=== PATIENT | female | born 1950 | race Caucasian/White ===

== ENCOUNTER → 2017-06-20 08:51 | Outpatient (CLI) | payer MEDICARE, SELFPAY ==
--- NOTE | 2017-06-20 08:59 | XR_ITS ---
XR DEXA axial skeleton HISTORY: ITS.REASON: POST MENOPAUSAL ORDERING PHYSICIAN: Rupert Villatoro MD PATIENT AGE: 66 years COMPARISON: 02/09/2011 FINDINGS: The BMD measured at the left femoral neck is 0.863 g/cm squared with a T score of -1.3 . This is considered Osteopenic according to the World Health Organization criteria. Fracture risk is Moderate. Treatment is advised. The L1 L4 density has a T score of 0.5 The density of the lumbar spine is increased by 9% from 02/09/2011 and the density of the hips is decreased by nearly 2% from 02/09/2011 IMPRESSION: Osteopenia. See above for detail. Recommend follow-up exam June 2019
== END ==
PROVIDERS: PCP Family Medicine; Visit Provider Family Medicine
DX: Z78.0 Asymptomatic menopausal state (principal); Z13.820 Encounter for screening for osteoporosis
CPT/HCPCS: 77080

== ENCOUNTER → 2018-02-26 09:01 | Outpatient (CLI) | payer MEDICARE, SELFPAY ==
[2018-02-26 10:11] LABS: Hemoglobin A1C 6.1 % (0.0-7.0)
[2018-02-26 11:10] LABS: Alanine Aminotransferase 33 U/L (12-78); Albumin Level 3.4 gm/dL (3.4-5.0); Albumin/Globulin Ratio 0.9 (1.1-1.8); Alkaline Phosphatase 133 U/L (46-116); Anion Gap 11.5 mEq/L (5-15); Aspartate Amino Transferase 31 U/L (15-37); Bilirubin,Total 0.5 mg/dL (0.2-1.0); Blood Urea Nitrogen 20 mg/dL (7-18); Carbon Dioxide 28 mmol/L (21.0-32.0); Chloride 104 mmol/L (98-107); Chol/HDL Ratio 4.3 (1-3.5); Cholesterol 204 mg/dL (140-200); Creatinine,Serum 1.05 mg/dL (0.55-1.02); Estimated Glomerular Filt Rate 52 ml/min (>60); GFR (African American) 63 ML/MIN (>60); Globulin 3.9 gm/dl (1.3-3.2); Glucose 105 mg/dL (74-106); HDL Cholesterol 48 mg/dL (29-89); LDL Cholesterol 120 mg/dL (0-130); Potassium 4.5 mmoL/L (3.5-5.1); Sodium 139 mmol/L (136-145); Thyroid Stimulating Hormone 1.97 uIU/ml (0.358-3.740); Total Protein,Serum 7.3 gm/dL (6.4-8.2); Triglycerides 180 mg/dL (30-200); VLDL Cholesterol 36 mg/dL (0-40)
== END ==
PROVIDERS: PCP Family Medicine; Visit Provider Family Medicine
DX: R73.01 Impaired fasting glucose (principal); E78.2 Mixed hyperlipidemia; E03.9 Hypothyroidism, unspecified; I10 Essential (primary) hypertension
CPT/HCPCS: 36415; 80053; 80061; 83036; 84439; 84443

== ENCOUNTER → 2018-07-16 09:40 | Outpatient (POV) | payer MEDICARE, SELFPAY | PROVIDERS: Visit Provider Dermatology | DX: Z00.00 Encounter for general adult medical examination without abnormal findings (principal) ==

== ENCOUNTER → 2019-03-07 10:19 | Outpatient (CLI) | payer MEDICARE, SELFPAY ==
[2019-03-07 13:45] LABS: Alanine Aminotransferase 26 U/L (12-78); Albumin Level 3.5 gm/dL (3.4-5.0); Albumin/Globulin Ratio 0.9 (1.1-1.8); Alkaline Phosphatase 125 U/L (46-116); Anion Gap 13.3 mEq/L (5-15); Aspartate Amino Transferase 21 U/L (15-37); Bilirubin,Total 0.5 mg/dL (0.2-1.0); Blood Urea Nitrogen 24 mg/dL (7-18); Carbon Dioxide 27 mmol/L (21.0-32.0); Chloride 104 mmol/L (98-107); Chol/HDL Ratio 4.3 (1-3.5); Cholesterol 267 mg/dL (140-200); Creatinine,Serum 1.01 mg/dL (0.55-1.02); Estimated Glomerular Filt Rate 55 ml/min (>60); GFR (African American) 66 ML/MIN (>60); Globulin 3.7 gm/dl (1.3-3.2); Glucose 84 mg/dL (74-106); HDL Cholesterol 62 mg/dL (29-89); LDL Cholesterol 185 mg/dL (0-130); Potassium 4.3 mmoL/L (3.5-5.1); Sodium 140 mmol/L (136-145); T4 (Thyroxine) 9.9 ug/dl (4.7-13.3); Thyroid Stimulating Hormone 1.76 uIU/ml (0.358-3.740); Total Protein,Serum 7.2 gm/dL (6.4-8.2); Triglycerides 98 mg/dL (30-200); VLDL Cholesterol 20 mg/dL (0-40)
== END ==
PROVIDERS: Visit Provider Family Medicine
DX: I10 Essential (primary) hypertension (principal); E78.5 Hyperlipidemia, unspecified; E03.9 Hypothyroidism, unspecified; M85.89 Other specified disorders of bone density and structure, multiple sites
CPT/HCPCS: 36415; 80053; 80061; 84436; 84443

== ENCOUNTER → 2019-03-25 11:41 | Outpatient (CLI) | payer MEDICARE, SELFPAY ==
[2019-03-26 12:21] LABS: Vitamin D 25 Hydroxy 41.6 ng/mL (30.0-100.0)
== END ==
PROVIDERS: Visit Provider Family Medicine
DX: I10 Essential (primary) hypertension (principal); E78.5 Hyperlipidemia, unspecified; E03.9 Hypothyroidism, unspecified; M85.89 Other specified disorders of bone density and structure, multiple sites
CPT/HCPCS: 82652

== ENCOUNTER → 2020-03-15 09:39 | Outpatient (CLI) | payer MEDICARE, SELFPAY ==
[2020-03-15 10:32] LABS: Chloride 104 mmol/L (98-107); Potassium 4.6 mmoL/L (3.5-5.1); Sodium 141 mmol/L (136-145)
[2020-03-15 10:34] LABS: Alanine Aminotransferase 31 U/L (12-78); Aspartate Amino Transferase 42 U/L (14-36); Blood Urea Nitrogen 22 mg/dl (7-17); Estimated Glomerular Filt Rate 49 ml/min (>60); GFR (African American) 60 ML/MIN (>60)
[2020-03-15 10:35] LABS: Albumin Level 4.3 g/dl (3.5-5.0); Albumin/Globulin Ratio 1.3 (1.1-1.8); Alkaline Phosphatase 109 U/L (38-126); Anion Gap 11.6 mEq/L (5-15); Bilirubin,Total 0.5 mg/dl (0.2-1.3); Calcium 9.5 mg/dl (8.4-10.2); Carbon Dioxide 30 mmol/L (22.0-30.0); Chol/HDL Ratio 2.7 (1-3.5); Cholesterol 186 mg/dl (140-200); Globulin 3.2 g/dL (1.3-3.2); Glucose 105 mg/dl (74-100); HDL Cholesterol 68 mg/dl (40-60); Total Protein,Serum 7.5 g/dl (6.3-8.2); Triglycerides 83 mg/dl (30-150); VLDL Cholesterol 17 mg/dL (0-40)
[2020-03-15 10:46] LABS: Direct LDL Cholesterol 88.61 mg/dL (100-129)
[2020-03-15 10:52] LABS: Free T4 (Free Thyroxine) 0.95 ng/dl (0.78-2.19)
[2020-03-15 11:06] LABS: Thyroid Stimulating Hormone 1.78 uIU/mL (0.465-4.68)
[2020-03-15 11:24] LABS: 25-OH Vitamin D, Total 41.2 ng/mL (30-100)
== END ==
PROVIDERS: Visit Provider Family Medicine
DX: E03.9 Hypothyroidism, unspecified (principal); E78.2 Mixed hyperlipidemia; I10 Essential (primary) hypertension; Z13.21 Encounter for screening for nutritional disorder
CPT/HCPCS: 36415; 80053; 80061; 82306; 84439; 84443

== ENCOUNTER → 2021-05-10 10:40 | Outpatient (CLI) | payer MEDICARE, SELFPAY ==
[2021-05-10 11:42] LABS: Hemoglobin A1C 5.6 % (4.0-6.0)
[2021-05-10 11:44] LABS: Chloride 107 mmol/L (98-107); Sodium 141 mmol/L (136-145)
[2021-05-10 11:45] LABS: Potassium 4.9 mmoL/L (3.5-5.1)
[2021-05-10 11:47] LABS: Alanine Aminotransferase 24 U/L (12-78); Alkaline Phosphatase 98 U/L (38-126); Anion Gap 9.9 mEq/L (5-15); Aspartate Amino Transferase 41 U/L (14-36); Bilirubin,Total 0.4 mg/dl (0.2-1.3); Blood Urea Nitrogen 16 mg/dl (7-17); Carbon Dioxide 29 mmol/L (22.0-30.0); Cholesterol 216 mg/dl (140-200); Estimated Glomerular Filt Rate 55 ml/min (>60); GFR (African American) 66 ML/MIN (>60); Triglycerides 119 mg/dl (30-150); VLDL Cholesterol 24 mg/dL (0-40)
[2021-05-10 11:48] LABS: Albumin Level 3.7 g/dl (3.5-5.0); Albumin/Globulin Ratio 1.2 (1.1-1.8); Calcium 8.7 mg/dl (8.4-10.2); Chol/HDL Ratio 3.4 (1-3.5); Glucose 99 mg/dl (74-100); HDL Cholesterol 63 mg/dl (40-60); Total Protein,Serum 6.7 g/dl (6.3-8.2)
[2021-05-10 11:58] LABS: Direct LDL Cholesterol 107.73 mg/dL (100-129)
[2021-05-10 12:17] LABS: Thyroid Stimulating Hormone 1.73 uIU/mL (0.465-4.68)
== END ==
PROVIDERS: Visit Provider Family Medicine
DX: I10 Essential (primary) hypertension (principal); R73.01 Impaired fasting glucose; E78.5 Hyperlipidemia, unspecified; E03.9 Hypothyroidism, unspecified
CPT/HCPCS: 36415; 80053; 80061; 83036; 84443

== ENCOUNTER → 2022-05-22 08:47 | Outpatient (CLI) | payer MEDICARE, SELFPAY ==
[2022-05-22 09:59] LABS: Hemoglobin A1C 5.7 % (4.0-6.0)
[2022-05-22 10:13] LABS: Alanine Aminotransferase 24 U/L (12-78); Albumin Level 4.2 g/dl (3.5-5.0); Albumin/Globulin Ratio 1.3 (1.1-1.8); Alkaline Phosphatase 93 U/L (38-126); Anion Gap 12.4 mEq/L (5-15); Aspartate Amino Transferase 42 U/L (14-36); Bilirubin,Total 0.6 mg/dl (0.2-1.3); Blood Urea Nitrogen 27 mg/dl (7-17); Calcium 9.3 mg/dl (8.4-10.2); Carbon Dioxide 27 mmol/L (22.0-30.0); Chloride 105 mmol/L (98-107); Chol/HDL Ratio 3.6 (1-3.5); Cholesterol 220 mg/dl (140-200); Estimated Glomerular Filt Rate 49 ml/min (>60); GFR (African American) 59 ML/MIN (>60); Globulin 3.3 g/dL (1.3-3.2); Glucose 107 mg/dl (74-100); HDL Cholesterol 61 mg/dl (40-60); Potassium 4.4 mmoL/L (3.5-5.1); Sodium 140 mmol/L (136-145); Total Protein,Serum 7.5 g/dl (6.3-8.2); Triglycerides 124 mg/dl (30-150); VLDL Cholesterol 25 mg/dL (0-40)
[2022-05-22 10:24] LABS: Direct LDL Cholesterol 101.41 mg/dL (100-129)
[2022-05-22 10:46] LABS: Thyroid Stimulating Hormone 2.19 uIU/mL (0.465-4.68)
== END ==
PROVIDERS: PCP Family Medicine; Visit Provider Family Medicine
DX: E03.9 Hypothyroidism, unspecified (principal); I10 Essential (primary) hypertension; E78.2 Mixed hyperlipidemia; R73.9 Hyperglycemia, unspecified
CPT/HCPCS: 36415; 80053; 80061; 83036; 84443

== ENCOUNTER → 2022-06-01 08:48 | Outpatient (CLI) | payer MEDICARE, SELFPAY ==
--- NOTE | 2022-06-01 08:54 | XR_ITS ---
FINAL REPORT TECHNIQUE: Bone densitometry calculations of the lumbar spine and left hip were obtained. CLINICAL HISTORY: post menopausal FINDINGS: Using L1-4, the bone mineral density of the spine is 1.14 g/cm2, corresponding to T-score of 0.5. Using the left hip, the bone mineral density of the femoral neck is 0.726 g/cm2, corresponding to a T-score of -1.8. NOTE: T-score: Standard deviation compared with peak bone mass of young adult mean. *Following the recommendations of the International Society of Bone densitometry, classification of hip BMD is based on the lower of two T-scores; total hip or femoral neck. IMPRESSION: Normal bone mineral density of the lumbar spine. Diminished bone mineral density of the left hip consistent with osteopenia. FRAX data reports 10 year fracture risk of 9.9% major osteoporotic fracture and 1.5% hip fracture. Reviewed, Interpreted and Dictated by Saray Alves MD Transcribed by Mayra Mantilla Authenticated and [facility]
== END ==
PROVIDERS: PCP Family Medicine; Visit Provider Family Medicine
DX: Z78.0 Asymptomatic menopausal state (principal)
CPT/HCPCS: 77080

== ENCOUNTER 2023-07-02 08:57 | Outpatient (CLI) | payer MEDICARE, SELFPAY ==
[2023-07-02 09:48] LABS: Chloride 106 mmol/L (98-107); Sodium 139 mmol/L (136-145)
[2023-07-02 09:49] LABS: Potassium 4.4 mmoL/L (3.5-5.1)
[2023-07-02 09:51] LABS: Alanine Aminotransferase 33 U/L (12-78); Alkaline Phosphatase 110 U/L (38-126); Anion Gap 6.4 mEq/L (5-15); Aspartate Amino Transferase 50 U/L (14-36); Bilirubin,Total 0.7 mg/dl (0.2-1.3); Blood Urea Nitrogen 16 mg/dl (7-17); Calcium 9.2 mg/dl (8.4-10.2); Carbon Dioxide 31 mmol/L (22.0-30.0); Cholesterol 210 mg/dl (140-200); Estimated Glomerular Filt Rate 44 ml/min (>60); GFR (African American) 53 ML/MIN (>60); Glucose 103 mg/dl (74-100); Triglycerides 126 mg/dl (30-150); VLDL Cholesterol 25 mg/dL (0-40)
[2023-07-02 09:52] LABS: Albumin Level 3.7 g/dl (3.5-5.0); Albumin/Globulin Ratio 1.1 (1.1-1.8); Chol/HDL Ratio 4.6 (1-3.5); Globulin 3.3 g/dL (1.3-3.2); HDL Cholesterol 46 mg/dl (40-60)
[2023-07-02 10:03] LABS: Direct LDL Cholesterol 105.46 mg/dL (100-129)
[2023-07-02 10:23] LABS: Thyroid Stimulating Hormone 3.09 uIU/mL (0.465-4.68)
[2023-07-02 12:09] LABS: Creatinine,Urine Random 84 mg/dL (Not Estab.)
== END 2023-07-02 23:59 ==
PROVIDERS: PCP Family Medicine; Visit Provider Family Medicine
DX: I10 Essential (primary) hypertension (principal); R73.9 Hyperglycemia, unspecified; E78.5 Hyperlipidemia, unspecified; E03.9 Hypothyroidism, unspecified
CPT/HCPCS: 36415; 80053; 80061; 82043; 82570; 83036; 84443

== ENCOUNTER 2024-07-28 07:55 | Outpatient (CLI) | payer MEDICARE, SELFPAY ==
[2024-07-28 08:57] LABS: Albumin Level 4.1 g/dl (3.5-5.0); Chloride 106 mmol/L (98-107)
[2024-07-28 08:58] LABS: Potassium 4.2 mmoL/L (3.5-5.1); Sodium 139 mmol/L (136-145)
[2024-07-28 09:00] LABS: Alanine Aminotransferase 24 U/L (12-78); Aspartate Amino Transferase 38 U/L (14-36); Blood Urea Nitrogen 24 mg/dl (7-17); Estimated Glomerular Filt Rate 44 ml/min (>60); GFR (African American) 53 ML/MIN (>60)
[2024-07-28 09:01] LABS: Albumin/Globulin Ratio 1.4 (1.1-1.8); Alkaline Phosphatase 87 U/L (38-126); Anion Gap 9.2 mEq/L (5-15); Bilirubin,Total 0.5 mg/dl (0.2-1.3); Calcium 9.2 mg/dl (8.4-10.2); Carbon Dioxide 28 mmol/L (22.0-30.0); Chol/HDL Ratio 4.1 (1-3.5); Cholesterol 211 mg/dl (140-200); Glucose 93 mg/dl (74-100); HDL Cholesterol 51 mg/dl (40-60); Total Protein,Serum 7.1 g/dl (6.3-8.2); Triglycerides 149 mg/dl (30-150); VLDL Cholesterol 30 mg/dL (0-40)
[2024-07-28 09:12] LABS: Direct LDL Cholesterol 103.13 mg/dL (100-129)
[2024-07-28 09:32] LABS: Thyroid Stimulating Hormone 1.99 uIU/mL (0.465-4.68)
== END 2024-07-28 23:59 | disposition home or self-care (01) ==
LOC: LAB 07:58
PROVIDERS: PCP Family Medicine; Visit Provider Family Medicine
DX: E78.5 Hyperlipidemia, unspecified (principal)
CPT/HCPCS: 36415; 80053; 80061; 84443

== ENCOUNTER 2025-02-17 14:35 | Outpatient (CLI) | payer MEDICARE, SELFPAY ==
--- OUTSIDE RECORDS SUMMARY | 2024-01-01 06:40 | XMS_ITS ---
Author Organization [facility] Address [address] [place] [id number] Care Team Providers Care Second Officer Name Role Phone Eric Archer Primary Care Provider Gill Cui Unavailable [phone] Libby Villatoro Unavailable [phone] Allergies No Known Allergies Results Component Value Reference Range Notes Covid test (in house) Reviewed date:01/01/2024 11:46:09 AM Interpretation:Negative Performing Lab: Notes/Report: Negative Result: neg REASON FOR VISIT fever, cough, possible covid Medications Medication SIG (Take, Route, Frequency, Duration) Notes Start Date End Date Status valACYclovir HCl 500 MG 1 tablet Orally Three times a day; Duration: 5 day(s) 01/29/2023 Not-Taking Promethazine HCl 25 MG 1 tab(s) Orally q6h prn Active Brimonidine Tartrate 0.2 % 1 gtt in each affected eye 3 times a day; Duration: 30 day(s) Not-Taking Lumigan 0.01 % 1 gtt in each affect ed eye once a day (in the evening); Duration: 30 day(s) 09/09/2014 Not-Taking Mupirocin 2 % 1 application Externally Twice a day; Duration: 5 day(s) 01/22/2023 Not-Taking Latanoprost 0.005 % 1 gtt in each eye on ce a day (in the evening); Duration: 30 day(s) Active Paxlovid (150/100) 10 x 150 MG & 10 x 100MG as directed Orally 01/01/2024 Ac tive Atorvastatin Calcium 40 MG 1 tab(s) orally once a day Active Levothyroxine Sodium 25 MCG 1 tab(s) orally once a day Active Lisinopril 10 MG 1 tab(s) orally once a day Active Vital Signs Blood pressure systolic 152 mm Hg 01/01/20 24 Blood pressure diastolic 96 mm Hg 024 Heart Rate 85 /min 01/01/2024 Height 60 in 01/01/2024 Weight 155.4 lbs 01/01/2024 BMI 30.35 kg/m2 01/01/2024 Encounters Encounter Location Date Provider Diagnosis [facility] [address] [place] [id number] 01/01/2024 Libby Villatoro COVID-19 U07.1 Assessments Encounter Date Diagnosis (ICD Code) Assessment Notes Treatment Notes Treatment Clinical Notes Section Notes 01/01/2024 COVID-19 (ICD-10 - U07.1) Plan Of Treatment Medication Medication Name Sig Start Date Stop Date Notes Promethazine HCl 25 MG 1 tab(s) Orally q6h prn 01/01/2024 Paxlovid (150/100) 10 x 150 MG & 10 x 100MG as directed Orally 01/01/2024 Next Appt Details Follow Up: prn, Reason: Medications Administered Medication Instructions Date of Administration Dosage Notes phenergan 25 mg/ml 01/01/2024 1 mL Progress Notes * RYANN COLEHDOB:[birth year] (74 yo F)Acc No.[id number]:01/01/2024 Progress Notes Patient: PAULETTE RANDLE Provider: Libby Villatoro M.D. :1950 A ge:73 Y S ex:Female Date:01/01/2024 Address:[address], [place], [id number] Pcp:Eric Archer Subjective: * Chief Complaints: * 1 . Fever, cough, possible covid. * HPI: E NT/respiratory: 73 year old female presents with c/o cough. c/o nasal congestion P t presents today with c/o headache, cough, nasal congestion, restlessness. Pt sts that she went to a class reunion and learned that someone there may have had COVID. Pt sts that she is very nauseous. Pt sts that she did take a test at home that looked positive but sts that it was two years . c/o Fever. c/o headache. * ROS: D ERMATOLOGY: no R adriana. n o H vladimir. G ASTROENTEROLOGY: Nausea y es. n o V omiting. n o D iarrhea.? U ROLOGY: no B lood in urine. n o F requent urination. ? * Medical History: G oiter, normal US of thyroid 10/24, Prosthetic left eye, Cataracts, Osteopenia. * Surgical History: a rtificial left eye- detached retina 3 yr old, tubal ligation , total hysterectomy-[place]/ ovarian cysts 06/2019. * Family History: F ather: , lung cancer, emphysema. M other: , alzheimer. 1 brother(s) - healthy. 3 daughter(s) - healthy. . maternal aunt had colon cancer. * Social History: C URRENT TOBACCO USE S moking Status: Patient does NOT smoke. C affeine: yes, frequency:. Exercise: yes. Home smoke detector use: yes. Marital Status: . Occupation: [employer]- [employer]. Past smoking status: no, Smoking status: Does not smoke. Recreational drug use: no. Alcohol: Type: , Frequency: occasionally ,Years: , Determination:. * Medications: T aking Latanoprost 0.005 % Solution 1 gtt in each eye once a day (in the evening) , Taking Atorvastatin Calcium 40 MG Tablet 1 tab(s) orally once a day , Taking Levothyroxine Sodium 25 MCG Tablet 1 tab(s) orally once a day , Taking Lisinopril 10 MG Tablet 1 tab(s) orally once a day , Not-Taking Mupirocin 2 % Ointment 1 application Externally Twice a day , Not-Taking valACYclovir HCl 500 MG Tablet 1 tablet Orally Three times a day , Not-Taking Brimonidine Tartrate 0.2 % Solution 1 gtt in each affected eye 3 times a day , Not-Taking Lumigan 0.01 % Solution 1 gtt in each affected eye once a day (in the evening) , Medication List reviewed and reconciled with the patient * Allergies: N .K.D.A. Objective: * Vitals: W t:155.4, Temp:98.2, BP:152/96, HR:85, O2 Sat:98% on RA, Nurse:ALEXANDRA, Ht: 60, BMI:30.35. * Examination: E NT/Respiratory: General Appearance: appears not to feel well. N ose :? mild congestion. H eart : R RR, normal S1 S2, no murmurs. L ungs: c lear to auscultation bilaterally. Assessment: * Assessment: 1. C OVID-19 - U07.1 (Primary) Plan: * Treatment: Value Reference Range R esult: neg * Shawna George 01/01/2024 11:0 2:06 AM > results reviewed w/ pt in office * Therapeutic Injections: phenergan 25 mg/ml : 1 mL (Route: Intramuscular) given by Shawna George on right gluteus (COVID-19) * Procedure Codes: 9 4760 [place], [address] COVID TEST IN HOUSE, Modifiers: QW , J2550 phenergan 25 mg/ml * Follow Up: p rn * Images: Billing Information: * Visit Code: 86185 Office Visit, Est Pt., Level 3. * Procedure Codes: [address] [place]. [address] COVID TEST IN HOUSE. Modifiers: QW J2550 phenergan 25 mg/ml. * Electronic signature of Libby Villatoro MD on 02/17/2025 at 02:38 PM EDT Sign off status: Pending * Provider: Libby Villatoro M.D. Date: 0 01/01/2024 Generated for Prasanna marie/Debra/Rosalindsmitting on: 1 02:38 PM EDT History and Physical Notes * HPI (History of Present Illness) Category Sub-Category Detail Notes Category Not es ENT/respiratory cough Fever headache nasal congestion Pt presents today wi th c/o headache, cough, nasal congestion, restlessness. Pt sts that she went to a class reunion and learned that someone there may have had COVID. Pt sts that she is very nauseous. Pt sts that she did take a test at home that looked positive but sts that it was two years Examination Category Sub-Category Detail Notes Category Not es ENT/Respiratory Heart : RRR, normal S1 S2, no mur murs Lungs: clear to auscultatio n bilaterally General Appearance: appears not to feel well Nose : mild congestion
--- OUTSIDE RECORDS SUMMARY | 2024-07-31 06:15 | XMS_ITS ---
Author Organization [facility] Address [address] [place] [id number] Care Team Providers Care Dryland Farmer Name Role Phone Eric Archer Primary Care Provider Gill Cui Unavailable [phone] Libby Villatoro Unavailable [phone] Allergies No Known Allergies REASON FOR VISIT checkup, refills and Annual Wellness Visit Medications Medication SIG (Take, Route, Frequency, Duration) Notes Start Date End Date Status Lisinopril 10 MG 1 tab(s) orally once a day Active Levothyroxine Sodium 25 MCG 1 tab(s) ora lly once a day Active Latanoprost 0.005 % 1 gtt in each eye on ce a day (in the evening); Duration: 30 day(s) Active Atorvastatin Calcium 40 MG 1 tab(s) oral ly once a day Active Problems Problem Type SNOMED Code ICD Code Onset Dates Problem Status W/U Status Risk Notes Problem Body mass index 30.00 to 34.99 ([id number]) BMI 31.0-31.9,a dult (Z68.31) Active confirmed Vital Signs Blood pressure systolic 160 mm Hg 08/01/19 25 Blood pressure diastolic 88 mm Hg 025 Heart Rate 75 /min 07/31/2024 Height 60 in 07/31/2024 Weight 159.0 lbs 07/31/2024 BMI 31.05 kg/m2 07/31/2024 Encounters Encounter Location Date Provider Diagnosis [facility] [address] [place] [id number] 07/31/2024 R Santos [place] Adult general medica l examination Z00.00 ; Dyslipidemia E78.5 ; Acquired hypothyroidism E03.9 ; Essential hypertension I10 ; Mild renal insufficiency N28.9 ; Dermatitis L30.9 ; Tendonitis M77.9 ; Osteopenia, unspecified location M85.80 and BMI 31.0-31.9,adult Z68.31 Assessments Encounter Date Diagnosis (ICD Code) Assessment Notes Treatment Notes Treatment Clinical Notes Section Notes 07/31/2024 Adult general medical examination (ICD-10 - Z00.00) Patient instructed to return to office Annually for Annual Wellness Visits to include annual screenings of Pain assessment, Functional Ability assessment, Cognitive Ability assessment, Fall Risk assessment, Depression screening and Bladder control screening. 07/31/2024 Dyslipidemia (ICD-10 - E78.5) 07/31/2024 Acquired hypothyroidism (ICD-10 - E03.9) 07/31/2024 Essential hypertension (ICD-10 - I10) 07/31/2024 Mild renal insufficiency (ICD-10 - N28.9) 07/31/2024 Dermatitis (ICD-10 - L30.9) Apply Cortaid cream twice daily to dry patch on ear 07/31/2024 Tendonitis (ICD-10 - M77.9) Seems to be resolving spontaneously. Range of motion exercises. OTC NSAID as needed. 07/31/2024 Osteopenia, unspecified location (ICD-10 - M85.80) 07/31/2024 BMI 31.0-31.9,adult (ICD-10 - Z68.31) Plan Of Treatment Medication Medication Name Sig Start Date Stop Date Notes Lisinopril 10 MG 1 tab(s) orally once a day Levothyroxine Sodium 25 MCG 1 tab(s) orally once a day Atorvastatin Calcium 40 MG 1 tab(s) orally once a day Treatment Notes Assessment Notes Adult general medical examination Patien t instructed to return to office Annually for Annual Wellness Visits to include annual screenings of Pain assessment, Functional Ability assessment, Cognitive Ability assessment, Fall Risk assessment, Depression screening and Bladder control screening. Dermatitis Apply Cortaid cream twice daily to dry patch on ear Tendonitis Seems to be resolvin g spontaneously. Range of motion exercises. OTC NSAID as needed. Next Appt Details Follow Up: 1 Year, Reason: Progress Notes * RYANN SOLOMONHDOB:[birth year] (74 yo F)Acc No.[id number]:07/31/2024 Annual Wellness Visit Patient: PAULETTE RANDLE Provider: Libby Villatoro M.D. :1950 A ge:73 Y S ex:Female Date:07/31/2024 Address:[facility] [address], [place], [id number] Pcp:Eric Archer Subjective: * Chief Complaints: * 1 . checkup, refills and Annual Wellness Visit. * HPI: H PI: Patient is here today for a check up with refills and a Medicare Annual Wellness Visit. See lab results completed at [facility] 07/28/2024. E NT/respiratory: She complains of an area of itching around the right tragus for several weeks. No ear pain. S houlder/Upper arm: She started about 2 weeks ago with pain in the left shoulder which she localizes around the anterior deltoid area. She recalls no specific injury. It was most noticeable with internal rotation of the shoulder. It was painful when she rolled over on her shoulder at night. Today she reports that the pain has gradually improved on its own. * ROS: O PTHALMOLOGY: Negative for d enies vision issues. * Medical History: G oiter, normal US of thyroid 10/24, Prosthetic left eye, Cataracts, Osteopenia, Declines Prevnar 07/2024. * Surgical History: a rtificial left eye- [...] detector use: yes. Marital Status: . 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 Past smoking status: no, Smoking status: [...] 1 tab(s) orally once a day , Medication List reviewed and reconciled with the patient * Allergies: N .K.D.A. Objective: * Vitals: W t:159.0, Temp:97.7, BP:160/88, HR:75, Nurse:waylon, Ht: 60, BMI:31.05. * Examination: C ardiology: General Appearance: p mirna, NAD. H EENT: T here is a dry scaly patch of skin around the right tragus. No drainage. Ear canal appears normal.. C arotid upstroke: n ormal, no bruits. H eart sounds: R RR, normal S1, S2. Murmur, click , gallop: n one. L ungs: c lear, no rales or wheezes. E xtremities:?no leg edema. Exam of the left shoulder shows no obvious deformity. There is no bony tenderness. She has decreased range of motion and discomfort on abduction with internal rotation. * Physical Examination: G ENERAL: Pain Assessment: P ain level: 1, on a scale of 0-10 (with 10 being extreme pain). F unctional Status Assessment: P atient response to question of how often physical health interferes with daily activities: . ALmost never Able to perform ADLs-including meal preparation, grocery shopping, housework, laundry, taking medications or handling finances. Cognitive Status: alert and oriented. Ambulation Status: Fully ambulatory . F all Risk Assessment: I ndependant in ambulation, adequate lighting in home. Patient has NOT fallen or had trouble walking within the past 12 months. D epression Screening: D enies depressed mood or anxiety. Describes emotional health as: positive. B ladder Control Screening: D enies problems. Assessment: * Assessment: 1. A dult general medical examination - Z00.00 (Primary) 2 . D yslipidemia - E78.5 3 . A cquired hypothyroidism - E03.9 4 . E ssential hypertension - I10 5 . M ild renal insufficiency - N28.9 6 . Dermatitis - L30.9 7 . T endonitis - M77.9 8 . O steopenia, unspecified location - M85.80 9 . B IA 31.0-31.9,adult - Z68.31 ? Plan: * Treatment: 2. D yslipidemia Refill Atorvastatin Calcium Tablet, 40 MG, 1 tab(s), orally, once a day, 90, Refills 3. 3. A cquired hypothyroidism Refill Levothyroxine Sodium Tablet, 25 MCG, 1 tab(s), orally, once a day, 90, Refills 3. 4. E ssential hypertension Refill Lisinopril Tablet, 10 MG, 1 tab(s), orally, once a day, 90, Refills 3. 5. D ermatitis Notes: Apply Cortaid cream twice daily to dry patch on ear 6. T endonitis Notes: Seems to be resolving spontaneously. Range of motion exercises. OTC NSAID as needed. ? * Procedure Codes: G 0439 ANNUAL WELLNESS VST; PPS SUBSQT VST, G2211 Complex e/m visit add on, G0444 ANNUAL DEPRESSION SCREENING 15 MIN, 1090F PRES/ABSN URINE INCON ASSESS, 3288F FALL RISK ASSESSMENT DOCD, 1170F FXNL STATUS ASSESSED, 1126F AMNT PAIN NOTED NONE PRSNT, 1159F MED LIST DOCD IN RCRD, 1003F LEVEL OF ACTIVITY ASSESS, 1036F TOBACCO NON- USER, 3017F COLORECTAL CA SCREEN DOC REV, G8510 NEG SCR Depression PT NOT ELIG F/U/PLN DOC, 3077F SYST BP = 140 MM HG6 IT, 3079F DIAST BP 80-89 MM HG * Preventive Medicine: Counseling: E motional health: D iscussed ways to improve socialization. B ladder control: M ethods of controlling or managing leakage of urine discussed. E xercise: Patient advised to start, increase or maintain level of exercise/physical activity. I njury prevention: F all prevention discussed. Discussed need for cane/walker. Potential trip hazards discussed. Immunizations: P neumococcal r ecommended. Screening / Special Tests: M ammogram R ecent history: 06/09/2024, negative.?Colonoscopy R ecent history:, Cologuard: 06/26/2022, negative. B one mineral Density R ecent history: 06/01/2022, osteopenia, recommended. * Follow Up: 1 Year * Images: Billing Information: * Visit Code: 60234 Office Visit, Est Pt., Level 3. Modifiers: 25 * Procedure Codes: G0439 ANNUAL WELLNESS VST; PPS SUBSQT VST. G2211 Complex e/m visit add on. G0444 ANNUAL DEPRESSION SCREENING 15 MIN. 1090F PRES/ABSN URINE INCON ASSESS. 3288F FALL RISK ASSESSMENT DOCD. 1170F FXNL STATUS ASSESSED. 1126F AMNT PAIN NOTED NONE PRSNT. 1159F MED LIST DOCD IN RCRD. 1003F LEVEL OF ACTIVITY ASSESS. 1036F TOBACCO NON-USER. 3017F COLORECTAL CA SCREEN DOC REV. G8510 NEG SCR Depression PT NOT ELIG F/U/PLN DOC. 3077F SYST BP = 140 MM HG6 IT. 3079F DIAST BP 80-89 MM HG. * Electronic signature of Libby Villatoro MD on 02/17/2025 at 02:39 PM EDT Sign off status: Pending * Provider: Libby Villatoro M.D. Date: 0 07/31/2024 Generated for Prasanna marie/Debra/Ajitting on: 1 02:39 PM EDT History and Physical Notes * HPI (History of Present Illness) Category Sub-Category Detail Notes Category Not es HPI Patient is here today for a [facility] k up with refills and a Medicare Annual Wellness Visit. See lab results completed at [facility] 07/28/2024 Physical Examination Category Sub-Category Detail Notes Section Note s GENERAL Pain Assessment: Pain level: 1, on a scale of 0-10 (with 10 being extreme pain) Functional Status Assessment: Patient response to question of how often physical health interferes with daily activities: . ALmost never Able to perform ADLs-including meal preparation, grocery shopping, housework, laundry, taking medications or handling finances. Cognitive Status: alert and oriented. Ambulation Status: Fully ambulatory Fall Risk Assessment: Independant in amb ulation, adequate lighting in home. Patient has NOT fallen or had trouble walking within the past 12 months Depression Screening: Denies depressed m ood or anxiety. Describes emotional health as: positive Bladder Control Screening: Denies proble ms Examination Category Sub-Category Detail Notes Category Not es Cardiology Lungs: clear, no rales or wheezes HEENT: There is a dry scaly patch of skin around the right tragus. No drainage. Ear canal appears normal. Heart sounds: RRR, normal S1, S2 Carotid upstroke: normal, no bruits Extremities: no leg edema. Exam o f the left shoulder shows no obvious deformity. There is no bony tenderness. She has decreased range of motion and discomfort on abduction with internal rotation Murmur, click , gallop: none General Appearance: pleasant, NAD
--- OUTSIDE RECORDS SUMMARY | 2025-02-05 07:15 | XMS_ITS ---
Author Organization [facility] Address [address] [place] [id number] Care Team Providers Care Heart Specialist Name Role Phone Eric Archer Primary Care Provider Gill Cui Unavailable [phone] Libby Villatoro Unavailable [phone] Allergies No Known Allergies REASON FOR VISIT Left Foot Painful Medications Medication SIG (Take, Route, Frequency, Duration) Notes Start Date End Date Status Atorvastatin Calcium 40 MG 1 tab(s) oral ly once a day Active Latanoprost 0.005 % 1 gtt in each eye on a day (in the evening); Duration: 30 day(s) Active Levothyroxine Sodium 25 MCG 1 tab(s) ora lly once a day Active Medrol 4 MG as directed Orally 02/05/2025 Active Lisinopril 10 MG 1 tab(s) orally once a day Active Problems Problem Type SNOMED Code ICD Code Onset Dates Problem Status W/U Status Risk Notes Problem Chronic kidney disease stage 3B (disorder) ([id number]) Chronic kidney disease, stage 3b (N18.32) Active confirmed Vital Signs Blood pressure systolic 140 mm Hg 02/06/20 25 Blood pressure diastolic 82 mm Hg 025 Heart Rate 76 /min 02/05/2025 Height 60 in 02/05/2025 Weight 159.2 lbs 02/05/2025 BMI 31.09 kg/m2 02/05/2025 Encounters Encounter Location Date Provider Diagnosis [facility] [address] [place] [id number] 02/05/2025 Libby Graham Shauna Toe pain, left M79.675 ; Chronic kidney disease, stage 3b N18.32 and BMI 31.0-31.9,adult Z68.31 Assessments Encounter Date Diagnosis (ICD Code) Assessment Notes Treatment Notes Treatment Clinical Notes Section Notes 02/05/2025 Toe pain, left (ICD-10 - M79.675) Etiology is unclear, likely inflammatory. There is no history of significant trauma. Will give a course of anti-inflammator ies if no improvement, proceed with imaging. 02/05/2025 Chronic kidney disease, stage 3b (ICD-10 - N18.32) 02/05/2025 BMI 31.0-31.9,adul t (ICD-10 - Z68.31) Plan Of Treatment Medication Medication Name Sig Start Date Stop Date Notes Medrol 4 MG as directed Orally 02/05/2025 Treatment Notes Assessment Notes Toe pain, left Etiology is unclear, likely inflammatory. There is no history of significant trauma. Will give a course of anti-inflammatories if no improvement, proceed with imaging. Next Appt Details Follow Up: 1 Week,fabiananBabatunde n: Progress Notes * RYANN SOLOMONHDOB:[birth year] (74 yo F)Acc No.[id number]:02/05/2025 Progress Notes Patient: PAULETTE RANDLE Provider: Libby Villatoro M.D. :1950 A ge:74 Y S ex:Female Date:02/05/2025 Address:[address], [place], [id number] Pcp:Eric Archer Subjective: * Chief Complaints: * 1 . Left Foot Painful. * HPI: A nkle/Foot: She presents with complaints of pain in her left great toe for about a week. She recalls no specific injury. She localizes the pain to the medial aspect of the toe. There is no pain at rest but only with walking; especially if barefoot. * ROS: D ERMATOLOGY: Negative for r adriana, hives. G ASTROENTEROLOGY: Negative for n ausea, heartburn, vomiting, abdominal pain.? U ROLOGY: Negative for d ifficulty urinating, voiding dysfunction, dysuria. * Medical History: G kelby, normal US of thyroid 10/24, Prosthetic left [...] detector use: yes. Marital Status: . Occupation: [employer]- [employer]. Past smoking status: no, Smoking status: Does [...] Allergies: N .K.D.A. Objective: * Vitals: W t: 159.2, Temp: 97.9, BP: 140/82, HR: 76, Nurse: waylon, Ht: 60, BMI:31.09. * Examination: A nkle / Foot: E xam of the left foot shows no joint swelling, redness, warmth of the great toe. Range of motion of the toe is normal with no pain. There is tenderness to palpation at the base of the proximal phalanx medially. Assessment: * Assessment: 1. T oe pain, left - M79.675 (Primary) 2 . C hronic kidney disease, stage 3b - N18.[address] 31.0-31.9,adult - Z68.31 Plan: * Treatment: * Procedure Codes: G 2211 Complex e/m visit add on, 1036F TOBACCO NON-USER, G9899 Scrn levi perf rslts doc, 3017F COLORECTAL CA SCREEN DOC REV * Preventive Medicine: Screening / Special Tests: M ammogram , negative. C olonoscopy?Cologuard:, negative, repeat 3 years. * Follow Up: 1 Week,prn * Images: Billing Information: * Visit Code: 56666 Office Visit, Est Pt., Level 3. * Procedure Codes: G2211 Complex e/m visit add on. 1036F TOBACCO NON-USER. G9899 Scrn levi perf rslts doc. 3017F COLORECTAL CA SCREEN DOC REV. * Electronic signature of Libby Villatoro MD on 02/17/2025 at 02:39 PM EDT Sign off status: Pending * Provider: Libby Villatoro M.D. Date: 0 02/05/2025 Generated for Prasanna marie/Debra/Ajitting on: 02:39 PM EDT History and Physical Notes * Examination Category Sub-Category Detail Notes Category Not es Ankle / Foot Exam of the lef t foot shows no joint swelling, redness, warmth of the great toe. Range of motion of the toe is normal with no pain. There is tenderness to palpation at the base of the proximal phalanx medially.
--- OUTSIDE RECORDS SUMMARY | 2025-02-17 14:39 | XMS_ITS | Patient Health Record ---
[facility] Address [address] [place] [id number] Care Team Providers Care Reading Specialist Name Role Phone Eric Archer Primary Care Provider [phone] Gill Cui Unavailable [phone] Libby Villatoro Unavailable [phone] Allergies No Known Allergies Results Component Value Reference Range Notes H-TSH Reviewed date:07/29/2024 04:35:38 PM Interpretation:Normal Performing Lab: Notes/Report: TSH 1.99 0.465-4.68 uIU/mL H-Lipid Panel Reviewed date:07/29/2024 04:35:38 PM Interpretation:chol 211, chol/hdl 4.1 Performing Lab: Notes/Report: Patient Fasting? Y TRIG 149 30-150 mg/dl CHOL 211 140-200 mg/dl DLDL 103.13 100-129 mg/dL VLDL 30 0-40 mg/dL HDL 51 40-60 mg/dl CHLHDL 4.1 1-3.5 H-CMP Reviewed date:07/29/2024 04:35:38 PM Interpretation:bun 24, Cr 1.2, gfr 44, ast 38 Performing Lab: Notes/Report: NA 139 136-145 mmol/L K 4.2 3.5-5.1 mmoL/L CL 106 98-107 mmol/L CO2 28 22.0-30.0 mmol/L GAP 9.2 5-15 mEq/L BUN 24 7-17 mg/dl CREATT 1.20 0.52-1.04 mg/dl GFRAA 53 >60 ML/MIN EGFR 44 >60 ml/min GLU 93 74-100 mg/dl CA 9.2 8.4-10.2 mg/dl BILIT 0.5 0.2-1.3 mg/dl AST 38 14-36 U/L ALT 24 12-78 U/L TP 7.1 6.3-8.2 g/dl ALB 4.1 3.5-5.0 g/dl GLOB 3.0 1.3-3.2 g/dL AGRATIO 1.4 1.1-1.8 ALP 87 38-126 U/L Medications Medication SIG (Take, Route, Frequency, Duration) Notes Start Date End Date Status Levothyroxine Sodium 25 MCG 1 tab(s) ora lly once a day Active Atorvastatin Calcium 40 MG 1 tab(s) oral ly once a day Active Latanoprost 0.005 % 1 gtt in each eye on ce a day (in the evening); Duration: 30 day(s) Active Lisinopril 10 MG 1 tab(s) orally once a day Active Immunizations Vaccine Route Administration Date Status Comme nts COVID 19 Moderna Unknown 05/19/2020 Administered COVID 19 Moderna Unknown 06/16/2020 Administered Fluzone High Dose (65yr and older) IM Intramuscular 03/27/2018 Administered Fluzone High Dose (65yr and older) IM Intramuscular 02/26/2019 Administered Fluzone High Dose (65yr and older) Unknown 03/15/2022 Administered Problems Problem Type SNOMED Code ICD Code Onset Dates Problem Status W/U Status Risk Notes Problem Essential hypertension (47875240) Essential hypertension (I10) Active confirmed Problem Anxiety (21759867) Anxiety (F41.9) Active confirmed Problem Environmental allergy (176041405) Environmental allergies (Z91.048) Active confirmed Problem Body mass index 30+ - obesity (171513038) BMI 30.0-30.9,adult (Z68.30) Active confirmed Problem Mixed hyperlipidemia (234689005) Mixed hyperlipidemia (E78.2) Active confirmed Problem Menopause (721676180) Menopausal and female climacteric states (N95.1) Active confirmed Problem Acquired hypothyroidism (065618656) Acquired hypothyroidism (E03.9) Active confirmed Problem Body mass index 30.00 to 34.99 (824684515842544) BMI 31.0-31.9,adult (Z68.31) Active confirmed Problem Dyslipidemia (108277333) Dyslipidemia (E78.5) Active confirmed Problem Thyromegaly (8238509) Thyromegaly (E01.0) Active confirmed Problem Osteopenia (422492270) Osteopenia, unspecified location (M85.80) Active confirmed Problem Chronic kidney disease stage 3B (disorder) (595244084) Chronic kidney disease, stage 3b (N18.32) Active confirmed Vital Signs Heart Rate 80 /min 02/17/2025 Blood pressure diastolic 80 mm Hg 02/17/2025 Height 60 in 02/17/2025 Blood pressure systolic 136 mm Hg 02/17/2025 Weight 160.6 lbs 02/17/2025 BMI 31.36 kg/m2 02/17/2025 Encounters Encounter Location Date Provider [facility] [address] [place] [id number] 07/31/2024 R Santos Villatoro Adult general medica l examination Z00.00 ; Dyslipidemia E78.5 ; Acquired hypothyroidism E03.9 ; Essential hypertension I10 ; Mild renal insufficiency N28.9 ; Dermatitis L30.9 ; Tendonitis M77.9 ; Osteopenia, unspecified location M85.80 and BMI 31.0-31.9,adult Z68.31 [facility] [address] [place] [id number] 02/05/2025 R Santos Villatoro Toe pain, left M79.6 75 ; Chronic kidney disease, stage 3b N18.32 and BMI 31.0-31.9,adult Z68.31 [facility] [address] [place] [id number] 02/17/2025 Gill Cui Great toe pain, left M79.675 [facility] [address] [place] [id number] 07/21/2024 Eric Archer Essential hypertensi on I10 ; Acquired hypothyroidism E03.[address] [facility] [address] [place] [id number] 02/16/2025 Eric Archer Assessments Encounter Date Diagnosis (ICD Code) Assessment Notes Treatment Notes Treatment Clinical Notes Section Notes 07/21/2024 Essential hypertension (ICD-10 - I10) 07/31/2024 Dyslipidemia (ICD-10 - E78.5) 07/31/2024 Adult general medical examination (ICD-10 - Z00.00) Patient instructed to return to office Annually for Annual Wellness Visits to include annual screenings of Pain assessment, Functional Ability assessment, Cognitive Ability assessment, Fall Risk assessment, Depression screening and Bladder control screening. 02/05/2025 Toe pain, left (ICD-10 - M79.675) Etiology is unclear, likely inflammatory. There is no history of significant trauma. Will give a course of anti-inflammato elizabeth if no improvement, proceed with imaging. 02/05/2025 Chronic kidney disease, stage 3b (ICD-10 - N18.32) 02/17/2025 Great toe pain, left (ICD-10 - M79.675) 02/05/2025 BMI 31.0-31.9,adult (ICD-10 - Z68.31) 07/31/2024 Acquired hypothyroidism (ICD-10 - E03.9) 07/21/2024 Acquired hypothyroidism (ICD-10 - E03.9) 07/21/2024 Dyslipidemia (ICD-10 - E78.5) 07/31/2024 Essential hypertension (ICD-10 - I10) 07/31/2024 Mild renal insufficiency (ICD-10 - N28.9) 07/31/2024 Dermatitis (ICD-10 - L30.9) Apply Cortaid cream twice daily to dry patch on ear 07/31/2024 Tendonitis (ICD-10 - M77.9) Seems to be resolving spontaneously. Range of motion exercises. OTC NSAID as needed. 07/31/2024 Osteopenia, unspecified location (ICD-10 - M85.80) 07/31/2024 BMI 31.0-31.9,adult (ICD-10 - Z68.31) Plan Of Treatment Pending Test Test Name Order Date x ray : great toe, left 02/17/2025 P-Uric Acid 02/17/2025 Insurance Providers Payer Name Payer Address Payer Phone Subscriber Number Group Number Insured Name Patient Relationship to Insured Coverage Start Date Coverage End Date MEDICARE PART B [address] [address] [place] [id number] PAULETTE COLE Self - patient is the insured [facility] [employer] [address] [place] [id number] PAULETTE COLE Self - patient is the insured Medications Administered Medication Instructions Date of Administration Dosage Notes Dexamethasone 11/27/2005 1 mL Dexamethasone 01/22/2023 1 mL phenergan 25 mg/ml 01/01/2024 1 mL Medical (General) History Medical History History ICD Code goiter normal US of thyroid 10/24 prosthetic left eye cataracts Osteopenia Declines Prevnar 07/2024 Surgical History Surgery Date(Month/Year) artificial left eye- detached retina 3 y r old tubal ligation total hysterectomy-[place]/ ovarian cysts 06/15 020
--- OUTSIDE RECORDS SUMMARY | 2025-02-17 14:39 | XMS_ITS ---
Author Organization Unknown Results OrderDate OrderTestName ResultName ResultDate Value Units Range AbnormalFlag ResultStatus ObservationNotes TestCode ResultCode DateRecorded AccessionNumber DiagnosticSectionCode DiagnosticSectionName Sequence Interpretation Cust om 01/01/2024 00:00:00 Covid test (in house) Result: [id number]:00:00 neg Reviewed Shawna Zepeda 01/01/2024 11:02:06 AM > results reviewed w/ pt in office Covid test (in house) 01/01/2024 00:00: 00:00:02G-BFSCQO7555-29YJJOFH6493-26-57P86:00:0087U/L38-126 - U/Shawna Macias 07/29/2024 04:35:25 PM > see phone encounter Coding H-CMP 07/21/2024 00:00: 00:00:75H-FHLPTWTQGL1045-59JGUBZETLSJ4374-14-02H45:00:001.41.1-1.8 -ReviewedGobleShawna 07/29/2024 04:35:25 PM > see phone encounter Coding H-CMP 07/21/2024 00:00: 00:00:53A-DKYQPAJ1582-90WHGJAXH0780-74-16C34:00:003.0g/dL1.3-3.2 - g/dLRevieweShawna [place] 07/29/2024 04:35:25 PM > see phone encounter Coding H-CMP 07/21/2024 00:00: 00:00:27J-XKBFXP5108-34DVQVGT5589-73-18Z25:00:004.1g/dl3.5-5.0 - g/dlRevieweShawna [place] 07/29/2024 04:35:25 PM > see phone encounter Coding H-CMP 07/21/2024 00:00: 00:00:76J-INJSO3600-93HQFWD0113-31-74E05:00:007.1g/dl6.3-8.2 - g/dlShawna Jensen 07/29/2024 04:35:25 PM > see phone encounter Coding H-CMP 07/21/2024 00:00: 00:00:29A-OZSVXH4498-26XEGQGL0573-82-30N40:00:0024U/L12-78 - U/LRShawna Bolton 07/29/2024 04:35:25 PM > see phone encounter Coding H-CMP 07/21/2024 00:00: 00:00:59X-BMQNYU4818-13IHBBDD7135-80-85V75:00:0038U/L14-36 - U/LHShawna Jensen 07/29/2024 04:35:25 PM > see phone encounter Coding H-CMP 07/21/2024 00:00: 00:00:17E-NYENVBJR9430-61TVUVOXWQ6771-16-48Q97:00:000.5mg/dl0.2- 1.3 - mg/dlShawna Jensen 07/29/2024 04:35:25 PM > see phone encounter Coding H-CMP 07/21/2024 00:00: 00:00:38B-FYXVR3825-01LQECN9306-45-00C33:00:009.2mg/dl8.4-10.2 - mg/dlShawna Jensen 07/29/2024 04:35:25 PM > see phone encounter Coding H-CMP 07/21/2024 00:00: 00:00:60B-JBQRMF1756-77MMHPMY5580-38-56U16:00:0093mg/ng53-019 - mg/dlShawna Jensen 07/29/2024 04:35:25 PM > see phone encounter Coding H-CMP 07/21/2024 00:00: 00:00:73Y-GUBBNDZ7983-48FTSTVCA0121-13-04O37:00:0044ml/min>60 - ml/minLarisadGluann, Shawna 07/29/2024 04:35:25 PM > see phone encounter Coding H-CMP 07/21/2024 00:00: 00:00:99U-GXRTFXFY2843-23WERSYTPA4366-84-66C05:00:0053ML/MIN>60 - ML/MINLReviewedGluann, Shawna 07/29/2024 04:35:25 PM > see phone encounter Coding H-CMP 07/21/2024 00:00: 00:00:00S-BKPVDFAFB1359-56HMPRPMHQE5321-29-85V43:00:001.20mg/dl 0.52-1.04 - mg/dlJuanjose, Shawna 07/29/2024 04:35:25 PM > see phone encounter Coding H-CMP 07/21/2024 00:00: 00:00:45H-PHYQNK4351-69LVSQLX7924-72-03A19:00:0024mg/dl7-17 - mg/dlJuanjose, Shawna 07/29/2024 04:35:25 PM > see phone encounter Coding H-CMP 07/21/2024 00:00: 00:00:55O-WKBJQK8855-82MFKZFI5306-56-27J27:00:009.2mEq/L5-15 - mEq/LRevieDeven, Shawna 07/29/2024 04:35:25 PM > see phone encounter Coding H-CMP 07/21/2024 00:00: 00:00:71X-GLVOD31168-91RUORB59090-33-22L15:00:0028mmol/L22.0- 30.0 - mmol/LReviewedGluann, Shawna 07/29/2024 04:35:25 PM > see phone encounter Coding H-CMP 07/21/2024 00:00: 00:00:35D-HSWHF1447-83LTXBW3071-11-43W09:00:01873stbf/L98-107 - mmol/LRevieDeven, Shawna 07/29/2024 04:35:25 PM > see phone encounter Coding H-CMP 07/21/2024 00:00: 00:00:94P-NLTX7030-04TNTR0315-88-59F51:00:004.2mmoL/L3.5-5.1 - mmoL/LRevVannessaShawna 07/29/2024 04:35:25 PM > see phone encounter Coding H-CMP 07/21/2024 00:00: 00:00:30N-VWSMW0189-14BJKUC8157-20-14L45:00:40288ksmp/P649-353 - mmol/LYNDAevVannessaShawna 07/29/2024 04:35:25 PM > see phone encounter Coding H-CMP 07/21/2024 00:00: 00:00:00H-Lipid GpuewXUHZAD7075-94-88B39:00:004.1 1-3.5 -HRevieDevenShawna 07/29/2024 04:35:25 PM > see phone encounter Coding H-Lipid Panel 07/21/2024 00:00: 00:00:00H-Lipid PuibbHPC1143-13-24A09:00:0051mg/dl 40-60 - mg/dlRekarunaJasmeet Shawna 07/29/2024 04:35:25 PM > see phone encounter Coding H-Lipid Panel 07/21/2024 00:00: 00:00:00H-Lipid RmelsGFMR6155-55-19S66:00:0030 mg/dL0-40 - mg/dLReJimmie Shawna 07/29/2024 04:35:25 PM > see phone encounter Coding H-Lipid Panel 07/21/2024 00:00: 00:00:00H-Lipid FxytsMHPM4799-87-73X05:00:95085.13 mg/oY373-394 - mg/dLCamila Shawna 07/29/2024 04:35:25 PM > see phone encounter Coding H-Lipid Panel 07/21/2024 00:00: 00:00:00H-Lipid UpkwbAKRE2148-91-12E44:00:70520 mg/rp951-344 - mg/dlHRShawna Bolton 07/29/2024 04:35:25 PM > see phone encounter Coding H-Lipid Panel 07/21/2024 00:00: 00:00:00H-Lipid BzsucABGA1206-98-03P78:00:69568 mg/zg14-832 - mg/dlRevieweShawna Al[place] 07/29/2024 04:35:25 PM > see phone encounter Coding H-Lipid Panel 07/21/2024 00:00: 00:00:31H-PUZVMV3306-22NNWUED4405-72-13K56:00:001.99uIU/mL 0.465-4.68 - uIU/mLRShawna Bolton 07/29/2024 04:35:25 PM > see phone encounter Coding H-TSH 07/21/2024 00:00:00
--- OUTSIDE RECORDS SUMMARY | 2025-02-17 14:39 | XMS_ITS | Clinical Summary ---
Author Organization Healthcare Address [address] [place] [address] Care Team Providers Care Fingernail Sculpturer Name Role Phone Lawrence Archer MD Primary Care Provider [phone] Family History Medical History Relation Name Comments Emphysema Father Lung cancer Father FH: lung cancer Alzheimer's disease Mother Relation Name Status Comments Father Mother Social History Tobacco Use Types Packs/Day Years Used Date Smoking Tobacco: Never Comments Unknown Sex and Gender Information Value Date Recorded Sex Assigned at Not on file Legal Sex Female 6:03 PM EDT Gender Identity Not on file Sexual Orientation Not on file Last Filed Vital Signs Vital Sign Reading Time Taken Comments Blood Pressure - - Pulse - - Temperature - - Respiratory Rate - - Oxygen Saturation - - Inhaled Oxygen Concentration - - Weight 76.2 kg (167 lb 15.9 oz) 01/10/2016 2:56 PM EDT Height 154.9 cm (5' 1 ) 11/24/2015 1:44 PM EDT Body Mass Index 31.74 11/24/2015 1:44 PM EDT Plan of Treatment Not on file Care Teams Fingernail Sculpturer Relationship Specialty Start Date End Date Lawrence Archer MD [address] [place] [address] [place] [address] PCP - General 09/24/20
--- NOTE | 2025-02-17 14:41 | XR_ITS ---
FINAL REPORT CLINICAL HISTORY: GREAT TOE PAIN, LEFT...no trrauma FINDINGS: LEFT GREAT TOE 3 views were obtained. There is no acute fracture or dislocation. 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 Visualized joint spaces are normally aligned. Soft tissues are unremarkable. IMPRESSION: No acute bony abnormality. Reviewed, Interpreted and Dictated by Saray Alves MD Transcribed by Che Lara Authenticated and [facility]
== END 2025-02-17 23:59 | disposition home or self-care (01) ==
LOC: RAD 14:37
PROVIDERS: PCP Family Medicine; Visit Provider Nurse Practitioner Family
DX: M19.072 Primary osteoarthritis, left ankle and foot (principal)
CPT/HCPCS: 73660

== ENCOUNTER 2025-04-30 08:44 | Outpatient (CLI) | payer MEDICARE, SELFPAY ==
--- OUTSIDE RECORDS SUMMARY | 2025-04-30 08:48 | XMS_ITS | Referral Summary ---
Author Organization [employer] ([place], [place], [place], [place], [place]) Address [address] [place] [address] Care Team Providers Care Breakfast Attendant Name Role Phone Rupert Villatoro MD Primary Care Provider [phone] Social History Tobacco Use Types Packs/Day Years Used Date Smoking Tobacco: Never Assessed Food Insecurity Answer Date Recorded Food run out past 12 months Not on file 05/14 Food did not last past 12 months Not on file 05/25/2023 Employment Answer Date Recorded Help finding and keeping a job Not on file 0 05/25/2023 Family and Community Support Answer Vincenzo e Recorded Help with Day to Day Activities Not on file 05/25/2023 Feeling Lonely or Isolated Not on file 05/25 Educational Attainment Answer Date Roger rded Speak language other than Malian at home Not on file 05/25/2023 Want help with school or training Not on file 05/25/2023 Substance Use Answer Date Recorded Used prescription meds for non-medical reasons N ot on file 05/25/2023 Used illegal drugs past 12 months Not on file 05/25/2023 Comments Unknown Sex and Gender Information Value Date Recorded Sex Assigned at Female 11/08/2021 6:19 PM CDT Legal Sex Female 6:19 PM CDT Gender Identity Female 11/08/2021 6:19 PM CDT Sexual Orientation Not on file Plan of Treatment Upcoming Encounters Date Type Department Care Team (Late st Contact Info) Description 06/10/2025 10:30 AM EST Appointment [facility] Breast Imaging [address] [facility] [address] [place] [address] Rupert Villatoro MD [address] [place] [address] Procedures Procedure Name Priority Date/Time Associated Diagnosis Comments MM DIGITAL MAMMO SCREEN WITH AUBREY BILATERAL Routine 06/09/2024 10:05 AM EST Visit for screening mammogram from Last 3 Months or Most Recently Relevant to Health Maintenance Results * MM digital mammo screen with aubrey bilateral (06/09/2024 10:05 AM EST) Anatomical Region Laterality Modality Breast Bilateral Mammography 06/09/2024 1:55 PM EST Impressions 06/09/2024 1:56 PM EST No mammographic evidence of malignancy BI-RADS CATEGORY: 1 , NEGATIVE. RECOMMENDED FOLLOW-UP: Annual mammography A letter including results and recommendations was sent to the patient. Density notification was included for patients with pattern 3 or 4 breast tissue. Patient information was entered into a reminder system with a target due date for the next mammogram. NOTES: Mammography does not detect approximately 10-15% of breast cancers. Physical examination of the breasts by a physician and regular monthly breast self examinations are integral parts of breast cancer screening. A normal mammogram does not exclude breast cancer if there is an abnormal finding on physical examination. When clinically indicated, a biopsy should not be postponed because of a normal mammogram report. Narrative 06/09/2024 1:56 PM EST BILATERAL SCREENING DIGITAL MAMMOGRAPHY CLINICAL INDICATION: Routine screening TECHNIQUE: Bilateral CC and MLO views were obtained with digital acquisitions with 3D tomosynthesis. The study was read with the assistance of CAD. COMPARISON: Exams dating back to 2019 DENSITY: The breasts are heterogeneously dense, which may obscure small masses FINDINGS: There are no spiculated masses, areas of distortion or suspicious calcifications. Rupert Villatoro MD IMG MAMMOGRAPHY ORDERABLES Final Result from Last 3 Months or Most Recently Relevant to Health Maintenance Insurance MEDICARE PART A B [facility] Care Teams Breakfast Attendant Relationship Specialty Start Date End Date Rupert Villatoro MD [address] [facility] [address] [place] [address] PCP - General Family Medicine 05/25/23
--- OUTSIDE RECORDS SUMMARY | 2025-04-30 08:48 | XMS_ITS | Clinical Summary ---
Author Organization Healthcare Address [address] [place] [address] Care Team Providers Care Customer Service And Sales Consultant Name Role Phone Lawrence Archer MD Primary Care Provider [phone] Family History Medical History Relation Name Comments [...] of Treatment Not on file Care Teams Customer Service And Sales Consultant Relationship Specialty Start Date End Date Lawrence Archer MD [address] [place] [address] [place] [address] PCP - General 09/24/20
--- OUTSIDE RECORDS SUMMARY | 2025-04-30 08:48 | XMS_ITS | Clinical Summary ---
Author Organization [employer] ([place], [place], [place], [place], [place]) Address [address] [place] [address] Care Team Providers Care Plunket Nurse Name Role Phone Rupert Villatoro MD Primary Care Provider [phone] Social History Tobacco Use Types Packs/Day Years [...] Date Roger rded Speak language other than Lebanese at home Not on file 05/25/2023 Want [...] Info) Description 06/10/2025 10:30 AM EST Appointment [facility] Breast Imaging [address] [facility] [address] [place] [address] Rupert Villatoro MD [address] [place] [address] Health Maintenance Due Date Last Done Comments Medicare Initial AWV G0438 CT Colonography 1950 Colonoscopy 1950 Colorectal Cancer Screening 1950 DXA SCAN 1950 FOBT/FIT 1950 Fit-DNA (Cologuard) 1950 Sigmoidoscopy 1950 Depression Screening (12+) 1962 Tobacco Cessation Counseling and Screening (12+) 1962 Hepatitis C Screening 1968 DTAP/TDAP/TD VACCINES (1 - Tdap) 1969 Pneumococcal 50+ years (1 of 1 - PCV) 2000 Shingles Vaccine (Zoster) (1 of 2) 2000 Falls Risk Screening 05/14/2024 COVID-19 VACCINE (3 - 2024-2 6 season) 2025 06/16/2020, 05/19/2020 Influenza Vaccine (#1) 2025 , 02/26/2019, 03/27/2018 Respiratory Syncytial Virus (RSV) Adult or (1 - 1-dose 75+ series) 2025 Breast Cancer Screening 06/09/2026 06/09/19 25, 06/18/2023, 05/25/2023, Additional history exists Procedures Procedure Name Priority Date/Time Associated Diagnosis [...] Most Recently Relevant to Health [place] [address] MEDICARE PART A B Care Teams Plunket Nurse Relationship Specialty Start Date End Date Rupert Villatoro MD [address] [facility] [address] [place] [address] PCP - General Family Medicine 05/25/23
--- NOTE | 2025-04-30 08:51 | US_ITS ---
FINAL REPORT TECHNIQUE: Ultrasound examination of the left upper quadrant was performed. CLINICAL HISTORY: ABD MUSCLE PAIN // lt sided pain COMPARISON: None FINDINGS: LEFT UPPER QUADRANT ULTRASOUND: The spleen is poorly visualized on this examination. The radiographic technologist placed an arrow on image 26 of 26, that seems intended to identify the small portion of the spleen which is visible. The left kidney measures 10.1 cm in length. There are several hyperechoic foci in the left kidney that most likely represent nonobstructing stones. There is a 2.8 x 2.2 cm hypoechoic mass in the left kidney, which is indeterminate. IMPRESSION: Spleen poorly visualized as described above. Only the left kidney is visualized in this examination. There are several hyperechoic foci that most likely represent nonobstructing stones. There is an indeterminate mass in the left kidney, 2.8 x 2.2 cm in size, and renal mass protocol CT is suggested for further evaluation. Reviewed, Interpreted and Dictated by Saeed Nino MD Transcribed by Jocelin Chavira Authenticated and [facility]
== END 2025-04-30 23:59 | disposition home or self-care (01) ==
LOC: RAD 08:46
PROVIDERS: PCP Family Medicine; Visit Provider Nurse Practitioner Family
DX: N28.89 Other specified disorders of kidney and ureter
CPT/HCPCS: 76705